=== PATIENT | male | born 1975 | race Two or more races ===

== ENCOUNTER → 2024-03-29 14:57 | Outpatient (AMB) | payer OTHER, SELFPAY ==
--- NOTE | 2024-03-29 15:04 | AM.OFFWIN_ITS ---
Intake Vital Signs 03/29/24 15:08 Height 6 ft Weight 193 lb 8 oz BMI 26.2 BP 118/78 Blood Pressure Location Rt brachial Position Sitting Pulse 67 Pulse Source Pulse Oximeter Temp 98.2 F Temp Source Oral Pulse Oximetry (%) 94 Oxygen Delivery Method Room Air Intake Visit Reasons: EST/LEFT POINTER FINGER PAIN (FROM HAMMER) Intake Note: patient here c/o accidentally hit his finger with a hammer at work. 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 2 hours ago he was doing some work at [employer] on his floor, and he struck his left index finger with a hammer. It was immediately painful, and he says there was a decent amount of blood which splattered onto the wall and floor. There appears to be a bit of tissue bursting out of the laceration. Pain currently is moderate and described as throbbing and burning. PFSH Social History Patient Tobacco Use Status: Never used Tobacco Physical Exam Vital Signs: Last Vital Signs Temp 98.2 F 03/29/24 15:08 Pulse 67 03/29/24 15:08 BP 118/78 03/29/24 15:08 Pulse Ox 94 03/29/24 15:08 Oxygen Delivery Method Room Air 03/29/24 15:08 BMI result Body Mass Index 26.2 Const Other: Left index finger: dried blood along the nailbed, swelling and ecchymosis of the distal finger, 1 cm laceration on finger tip with tissue jutting out of the wound, sensation intact, patient can bend the finger with pain Assessment & Plan Assessment & Plan (1) Injury of left index finger: Code(s): S69.92XA - Unspecified injury of left wrist, hand and finger(s), initial encounter Plan: Patient needs laceration repair. No provider in office who performs this type of procedure. Referred to [place] [facility]. Patient going directly from this office. Informed he needs tetanus immunization updated-patient states he will do this also at the ER. Coding Level of Care Code Est Pt Level 3 (78908) Diagnoses Injury of left index finger S69.92XA
[2024-03-29 15:08] VITALS: BP 118/78; PULSE 67; TEMP 36.8; O2SAT 94; BMI 26.2
== END ==
PROVIDERS: Visit Provider Physician Assistant Medical
DX: S69.92XA Unspecified injury of left wrist, hand and finger(s), initial encounter (principal)
CPT/HCPCS: 99212